=== PATIENT | male | born 1980 | race Caucasian/White ===

== ENCOUNTER 2017-08-12 22:34 | Emergency (ER) | payer BC ==
[2017-08-13] MEDS ORDERED: Ibuprofen TAB* 600 MG PO ONE (04:01)
[2017-08-13 04:19] VITALS: BP 125/87
--- NOTE | 2017-08-13 07:38 | ED ---
Monica Cabrera Abhishek, scribed for Carlton Caceres MD on 08/13/17 at 0619 . HPI Chest Pain - HPI Summary HPI Summary: This patient is a 37 year old M presenting to [facility] with a chief complaint of CP since 2 days ago (Thursday). The CC is described as significant lateral to the right side of chest when breathing and mild at rest. The patient rates the pain 2/10 in severity. Symptoms aggravated by movement, and palpation. Symptoms alleviated by nothing. Patient reports cold for a few days. Patient denies trauma, lower extremity pain, chest congestion, fever, and rash. PMHx includes Asthama, Gallbladder, and check nurses notes. - History of Current Complaint Chief Complaint: EDChestWallPain Time Seen by Provider: 08/13/17 03:32 Hx Obtained From: Patient Onset/Duration: Still Present Current Severity: Moderate Pain Intensity: 4 Pain Scale Used: 0-10 Numeric Chest Pain Location: Right Lateral Chest Pain Radiates: No Aggravating Factor(s): Movement, Deep Breaths, Other: - Palpation Alleviating Factor(s): Nothing Associated Signs and Symptoms: Negative: Fever - Allergy/Home Medications Allergies/Adverse Reactions: Allergies Allergy/AdvReac Type Severity Reaction Status Date / Time No Known Allergies Allergy Verified 08/12/17 22:42 PMH/Surg Hx/FS Hx/Imm Hx Endocrine/Hematology History: Denies: Hx Diabetes Sensory History: Denies: Hx Deafness Infectious Disease History: No Infectious Disease History: Denies: Traveled Outside the [place] in Last 30 Days - Family History Known Family History: Negative: Seizure Disorder - Social History Alcohol Use: Occasionally Substance Use Type: Reports: Marijuana Smoking Status (MU): Never Smoked Tobacco Review of Systems Negative: Fever Positive: Chest Pain, Other - NEGATIVE: Chest congestion Positive: Other - NEGATIVE: LE pain Negative: Rash All Other Systems Reviewed And Are Negative: Yes Physical Exam - Summary Physical Exam Summary: General: well-appearing, no pain distress Skin: warm, color reflects adequate perfusion, dry, no rash Head: normal Eyes: EOMI, PADDY ENT: normal Neck: supple, nontender Respiratory: CTA, breath sounds present Cardiovascular: RRR, tenerness to palpation to the left lower anterior chest Abdomen: soft, nontender Bowel: present Musculoskeletal: normal, strength/ROM intact Neurological: normal, sensory/motor intact, A&O x3 Psychological: affect/mood appropriate Triage Information Reviewed: Yes Vital Signs On Initial Exam: Initial Vitals Temp Pulse Resp BP Pulse Ox 98.4 F 66 18 151/81 97 08/12/17 22:39 08/12/17 22:39 08/12/17 22:39 08/12/17 22:39 08/12/17 22:39 Vital Signs Reviewed: Yes - [place] Coma Scale Coma Scale Total: 15 Diagnostics - Vital Signs Vital Signs Temp Pulse Resp BP Pulse Ox 08/13/17 04:18 98.1 F 55 16 125/87 98 08/13/17 04:00 64 130/75 100 08/13/17 03:39 60 99 08/13/17 03:37 129/84 08/13/17 02:20 98.2 F 54 16 130/89 99 08/13/17 00:20 98.1 F 58 16 132/86 96 08/12/17 22:39 98.4 F 66 18 151/81 97 - Laboratory Lab Results: Lab Results 08/13/17 Range/Units 02:27 D-Dimer, Quantitative < 200 (Less Than 230) ng/mL Lab Statement: Any lab studies that have been ordered have been reviewed, and results considered in the medical decision making process. - Radiology CXR with ribs Xray Interpretation: No Acute Changes Radiology Interpretation Completed By: ED Physician - EKG 2243 Cardiac Rate: NL - 61 bpm EKG Rhythm: Sinus Rhythm EKG Interpretation: Brderline intraventricular conduction delay with QRSD at 113 Chest Pain Course/Dx - Course Assessment/Plan: Medications reviewed. Elevated BP noted. VSS/NO HYPOXIA OR TACHYCARDIA. NEGATIVE DDIMER. CXR NL. PAIN IS REPRODUCIBLE TO PALPATION. THIS WAS ALL DISCUSSED WITH THE PATIENT. F/U PMD; RETURN IF WORSE. - Diagnoses Provider Diagnoses: Chest pain Discharge - Discharge Plan Condition: Stable Disposition: HOME Patient Education Materials: Chest Pain (ED) Referrals: No Primary Care Phys,NOPCP [Primary Care Provider] - Additional Instructions: FOLLOW UP WITH YOUR DOCTOR. TAKE IBUPROFEN 600MG EVERY 6 HOURS NEEDED. THE FINAL RADIOLOGIST READING OF YOUR CHEST X-RAY IS PENDING. THOSE RESULTS WILL BE READY TODAY BY 10 AM. RETURN TO THE EMERGENCY DEPARTMENT FOR ANY WORSENING OF YOUR CONDITION; PAIN, SHORTNESS OF BREATH, YOU FEEL ILL OR QUESTIONS OR CONCERNS. The documentation as recorded by the scribe, Monica,Alonzo accurately reflects the service I personally performed and the decisions made by me, Carlton Caceres MD.
--- NOTE | 2017-08-13 07:46 | RAD ---
INDICATION: Left lateral rib pain with deep inspiration x2 days COMPARISON: None. TECHNIQUE: 3 views of the left ribs were obtained. FINDINGS: No fracture or significant focal osseous abnormality is seen. No pneumothorax is apparent. Limited views demonstrate grossly clear lungs. IMPRESSION: No radiographically apparent displaced rib fracture or pneumothorax. If the patient's symptoms persist, follow-up imaging is recommended.
== END 2017-08-13 04:19 | disposition home or self-care (01) ==
LOC: ED 22:34
DX: R07.89 Other chest pain (principal); F12.90 Cannabis use, unspecified, uncomplicated
CPT/HCPCS: 36415; 85379; 93005; 99283; A9270-GY